=== PATIENT | male | born 1955 | race Caucasian/White ===

== ENCOUNTER → 2017-05-22 | Outpatient (CLI) | payer OTHER | END | disposition home or self-care (01) | LOC: MRI 05-20 09:00 | DX: S43.402A Unspecified sprain of left shoulder joint, initial encounter (principal); M12.812 Other specific arthropathies, not elsewhere classified, left shoulder; S13.4XXA Sprain of ligaments of cervical spine, initial encounter; M48.02 Spinal stenosis, cervical region; X58.XXXA Exposure to other specified factors, initial encounter; Y93.89 Activity, other specified; Y92.89 Other specified places as the place of occurrence of the external cause; Y99.8 Other external cause status ==

== ENCOUNTER → 2019-04-23 | Day surgery (SDC) | payer OTHER ==
[~2019-04-23] VITALS: Ht 187.9 cm; Wt 104.3 kg
[~2019-04-23] MED LIST: FLONASE ALLERG9.9 ML NAS; IBU800 M2 PO; LORADAMED10 MG PO
--- NOTE | ~2019-04-23 | PROC NOTE ---
[place], [place] PROCEDURE NOTE NAME: BERKLEY ZULUAGA UNIT #: [id number] ROOM: DOCTOR: KARLA MOHAMUD,NADEGE BIRTHDATE: [birth year] DOS: PROCEDURE: Colonoscopy. INDICATIONS: Colon cancer screening. Informed consent was obtained from the patient after indication of procedure, the alternatives and potential complications were explained to him. PROCEDURE MEDICATION: Sedation was administered by Anesthesiology Department. Scope used was Olympus pediatric colonoscope variable stiffness GIF-180, depth of insertion was to the cecum, which was identified by the usual landmarks, appendiceal orifice, ileocecal valve and triangular fold, in addition to transillumination in the right lower quadrant. FINDINGS: After adequate sedation, the patient was placed in left lateral decubitus position. Rectal examination showed normal sphincter tone and no external hemorrhoids. The scope was introduced into the rectum, then advanced to the cecum with no difficulty. The prep was adequate. The colon mucosa appeared normal with no evidence of polyps, diverticular ulcerations. Retroflexed view in the rectum showed grade 1 internal hemorrhoids. The scope was then withdrawn after the rectum was decompressed. The patient tolerated the procedure well. IMPRESSION: 1. Normal colon mucosa. No polyps seen. 2. Small internal hemorrhoids. PLAN: There is no need for further GI workup at this time. Repeat screening colonoscopy is advised in 10 years. Office followup will be scheduled p.r.n. NADEGE ACOSTA MD CM:PROCNOTE:PROCEDURE NOTE [id number] LUCRECIA ACOSTA MD
[2019-04-23 07:30] VITALS: BP 122/81
[2019-04-23 09:16] VITALS: BP 112/54
[2019-04-23 09:30] VITALS: BP 113/69
[2019-04-23 09:40] VITALS: BP 114/70
== END | disposition home or self-care (01) ==
LOC: SDC 04-20 11:00
DX: Z12.11 Encounter for screening for malignant neoplasm of colon (principal); K57.30 Diverticulosis of large intestine without perforation or abscess without bleeding; K64.0 First degree hemorrhoids; M19.90 Unspecified osteoarthritis, unspecified site; M10.9 Gout, unspecified; E66.9 Obesity, unspecified; Z68.29 Body mass index [BMI] 29.0-29.9, adult; Z88.8 Allergy status to other drugs, medicaments and biological substances; Z79.899 Other long term (current) drug therapy; Z98.890 Other specified postprocedural states; Z72.89 Other problems related to lifestyle